=== PATIENT | male | born 1990 | race Caucasian/White ===

== ENCOUNTER 2019-01-05 07:02 | Emergency (ER) | payer BC ==
[2019-01-05 07:06] VITALS: TEMP 97.2
[2019-01-05] MEDS ORDERED: ONDANSETRON HCL 4 MG/2 ML SOL IV ONE (07:20)
[2019-01-05] MEDS ORDERED: MORPHINE SULFATE 10 MG/ML SOL IV ONE (07:21)
[2019-01-05] MEDS ORDERED: MORPHINE SULFATE 10 MG/ML SOL ONE (07:24)
[2019-01-05] MEDS ORDERED: ONDANSETRON HCL 4 MG/2 ML SOL ONE (07:25)
[2019-01-05 07:27] LABS: BASOPHILS % (AUTO) 1 % (0-3); EOSINOPHILS % (AUTO) 2 % (0-9); HEMATOCRIT 49 % (39-53); HEMOGLOBIN 15.5 gm/dl (13.5-17.7); LYMPHOCYTES % (AUTO) 32.3 % (10-50); MEAN CORPUSCULAR HEMOGLOBIN 27.2 pg (27.0-32.0); MEAN CORPUSCULAR HGB CONC 31.8 gm/dl (32.0-36.0); MEAN CORPUSCULAR VOLUME 86 fL (80-100); MONOCYTES % (AUTO) 8.3 % (0-12); NEUTROPHILS % (AUTO) 56.8 % (37-80)
[2019-01-05 07:41] LABS: ALBUMIN 4.1 gm/dl (3.4-5.0); BILIRUBIN,TOTAL 0.6 mg/dl (0.2-1.0); CALCIUM 8.6 mg/dl (8.5-10.1); CARBON DIOXIDE 29.5 mEq/L (21-32); CREATININE 1.04 mg/dl (0.80-1.30); TOTAL PROTEIN 7.2 gm/dl (6.4-8.2)
[2019-01-05 07:50] LABS: APPEARANCE,URINE Clear; BILIRUBIN,URINE NEGATIVE (NEGATIVE); COLOR,URINE Yellow; GLUCOSE, URINE (UA) NEGATIVE (NEGATIVE); KETONES,URINE NEGATIVE (NEGATIVE); LEUKOCYTE ESTERASE ,URINE NEGATIVE (NEGATIVE); NITRATE,URINE NEGATIVE (NEGATIVE); OCCULT BLOOD,URINE 2+ (NEG-TRACE); UROBILINOGEN,URINE 0.2 (0.2-1.0 EU)
[2019-01-05 08:04] LABS: BACTERIA TRACE (< 1+); CRYSTALS NEGATIVE (0-3 AVE/HPF); EPITHELIAL CELLS 0-1 (SQUAMOUS); RBC,URINE 15-25 (0-3AV/HPF)
[2019-01-05] MEDS ORDERED: KETOROLAC TROMETHAMINE 30 MG/ML SOL IV ONE (08:13)
[2019-01-05] MEDS ORDERED: SODIUM CHLORIDE 0.9% 1000ML 1,000 ML IV ONE (08:13)
[2019-01-05] MEDS ORDERED: KETOROLAC TROMETHAMINE 30 MG/ML SOL ONE (08:25)
[2019-01-05 08:50] VITALS: RESP 16
[2019-01-05 09:21] VITALS: O2SAT 99
[2019-01-05 09:34] VITALS: BP 126/73; PULSE 64
== END 2019-01-05 10:32 | disposition home or self-care (01) ==
LOC: ED 07:02
DX: N20.2 Calculus of kidney with calculus of ureter (principal); N13.9 Obstructive and reflux uropathy, unspecified
CPT/HCPCS: 74176; 80053; 81001; 85025; 96365; 96374; 96375; 99283; 99285; J1885; J2270; J2405